=== PATIENT | female | born 1935 ===

== ENCOUNTER 2018-03-11 11:18 | Day surgery (SDC) | payer OTHER, MEDICARE ==
[2018-03-08 19:38] VITALS: BMI 31.2
[2018-03-11] MEDS ORDERED: Lidocaine 2% Inj (20ml) ONE (12:04)
[2018-03-11] MEDS ORDERED: Heparin 2,000 ML IV ONE (12:05)
[2018-03-11] MEDS ORDERED: Iodixanol 320 MG/ML 200 ML BOTTLE IV ONE (12:05)
[2018-03-11] MEDS ORDERED: Midazolam 2 MG/2 ML VIAL ONE (12:44)
[2018-03-11] MEDS ORDERED: Sodium Chloride 0.9% 1,000 ML IV SCH (13:30)
--- NOTE | 2018-03-11 18:01 | CARDCATH ---
PROCEDURE DATE: 03/11/2018 BRIEF CLINICAL HISTORY: This is a patient, who is an 83-year-old female with history of hypertension, hyperlipidemia, COPD, shortness of breath, and severe positive troponin. After discussing with the patient for the further management, the patient was transferred to [facility] for cardiac catheterization. PROCEDURE TECHNIQUE: After obtaining the consent, 6-Libyan sheath was introduced into the right femoral artery and access was completed without any complication. A 6-Libyan JL 4 catheter was used to visualize the left coronary artery system. A 6-Libyan JR 3DRC and 6-Libyan RCA guide catheter was used to visualize the right coronary artery system. FINDINGS: Left short and normal size. LAD is very torturous with nonobstructive disease. Circumflex is very torturous with nonobstructive disease. RCA has ostial of about 50% lesion which becomes worse with the catheter engagement; however, after the IV nitro it improved. It is most likely induced . A 6-Libyan pigtail catheter was used to assess her left ventricular and diastolic pressure which is normal and normal LV systolic function. The patient with nonobstructive coronary artery disease, normal systolic function, normal left ventricular diastolic. PLAN: The patient will be monitored for 4 hours. She was given IV fluids . She will be transferred back to [facility] and management was discussed with the family. Lainey Sood MD
[2018-03-11 18:18] VITALS: BP 151/68; PULSE 79; RESP 18; TEMP 97.7
== END 2018-03-11 20:00 | disposition short-term general hospital (02) ==
LOC: CATH 11:18 → 2RSO 13:59 → CATH 20:00
PROVIDERS: ATTEND Internal Medicine
DX: I25.10 Atherosclerotic heart disease of native coronary artery without angina pectoris (principal); I10 Essential (primary) hypertension; E78.5 Hyperlipidemia, unspecified; J44.9 Chronic obstructive pulmonary disease, unspecified
CPT/HCPCS: 93458; 99152; 99153; C1760; C1769; C1887; C1894; J1644; J2250; J3010; J7030; Q9966